=== PATIENT | male | born 1965 | race American Indian/Alaskan Native ===

== ENCOUNTER 2017-03-22 03:40 | Emergency (ER) | payer MEDICAID ==
[2017-03-22 04:29] LABS: Basophils % (Auto) 0.3 % (0.0-1.8); Eosinophils % (Auto) 0.9 % (0.0-4.3); Hematocrit 45.8 % (35.5-45.6); Hemoglobin 15.6 gm/dl (11.8-15.2); Mean Corpuscular HGB Conc 34 % (32-34); Mean Corpuscular Hemoglobin 31 pg (28-32); Mean Corpuscular Volume 92 fl (84-94); Platelet Count 196 K/mm3 (140-440); Red Blood Count 4.98 M/mm3 (3.65-5.03); White Blood Count 7.7 K/mm3 (4.5-11.0)
[2017-03-22 04:43] LABS: Partial Thromboplastin Time 28.7 Sec. (24.2-36.6)
[2017-03-22 04:51] LABS: Alanine Aminotransferase 28 units/L (7-56); Albumin 4.6 g/dL (3.9-5); Albumin/Globulin Ratio 1.4 %; Alkaline Phosphatase 79 units/L (35-129); Anion Gap 20 mmol/L; BUN/Creatinine Ratio 7.77; Blood Urea Nitrogen 7 mg/dL (9-20); Calcium 9.6 mg/dL (8.4-10.2); Carbon Dioxide 20 mmol/L (22-30); Chloride 102.2 mmol/L (98-107); Glucose 113 mg/dL (75-100); Lipase 44 units/L (13-60); Potassium 3.9 mmol/L (3.6-5.0); Sodium 138 mmol/L (137-145); Total Protein 7.9 g/dL (6.3-8.2)
[2017-03-22 05:45] LABS: INR 0.99 (0.87-1.13)
[2017-03-22] MEDS ORDERED: ZOFRAN ODT PO ONE (13:52)
[2017-03-22] MEDS ORDERED: PERCOCET 5/325 PO ONE (13:52)
[2017-03-22 14:09] LABS: Bacteria,Urine 1+ /HPF (Negative); Bilirubin,Urine NEG (Negative); Blood,Urine NEG (Negative); Ketones,Urine NEG (Negative); Leukocyte Esterase,Urine SM (Negative); Mucus,Urine 3+ /HPF; Nitrite,Urine NEG (Negative)
[2017-03-22 14:18] VITALS: BP 118/84
--- NOTE | 2017-03-22 15:05 | Emergency Department Report ---
ED Abdominal Pain HPI - General Chief Complaint: Abdominal Pain Stated Complaint: NOT FEELING WELL Time Seen by Provider: 03/22/17 13:36 Source: patient, EMS, RN notes reviewed Mode of arrival: Ambulatory Limitations: No Limitations - History of Present Illness Initial Comments: 51-year-old male presents to the emergency department complaining of abdominal pain, chest pain, and headache. Patient states abdominal pain has been present for the past 2 days. Pain started after he drank some alcohol. He began having nausea and vomiting shortly afterwards. He states he did see some dark blood initially, but this has resolved. Patient also describes sharp substernal chest pain that does not radiate. This pain has been present and intermittent for the past 2 weeks. He reports occasional shortness of breath, but denies dizziness or diaphoresis. Headache began this morning upon awakening. Patient describes throbbing pain to the left side of his head that radiates to his neck. Patient states he has had similar headaches since he was in high school. There are no other complaints. -: Gradual, week(s) (2) Location: epigastric Radiation: none Migration to: no migration Severity scale (0 -10): 10 Quality: sharp Consistency: constant Improves With: nothing Worsens With: nothing Context: other (alcohol ingestion) Associated Symptoms: nausea, vomiting - Related Data Home Medications Medication Instructions Recorded Confirmed Last Taken Brimonidine/Timolol 0.2-0.5% 1 drops OP Q12H 09/11/15 03/22/17 03/22/17 [Combigan 0.2-0.5%] Dorzolamide HCl/Timolol Maleat 10 ml OP DAILY 03/22/17 03/22/17 03/22/17 [Dorzolamide-Timolol Eye Drops] Ranitidine HCl [Zantac 150 MG TAB] 150 mg PO DAILY 03/22/17 03/22/17 03/22/17 Previous Rx's Medication Instructions Recorded Last Taken Type Promethazine [Phenergan TAB] 25 mg PO Q6HR PRN #20 tab 03/22/17 Unknown Rx oxyCODONE /ACETAMINOPHEN [Percocet 1 tab PO Q6HR PRN #14 tablet 03/22/17 Unknown Rx 5/325] Allergies Allergy/AdvReac Type Severity Reaction Status Date / Time No Known Allergies Allergy Verified 09/11/15 03:58 ED Review of Systems ROS: Stated complaint: NOT FEELING WELL Other details as noted in HPI Comment: All other systems reviewed and negative Respiratory: shortness of breath Cardiovascular: chest pain Gastrointestinal: abdominal pain, nausea, vomiting Neurological: headache ED Past Medical Hx - Past Medical History Previous Medical History?: Yes Hx Hypertension: Yes Hx GERD: Yes Additional medical history: PUD. Esophageal disease. Glaucoma - Surgical History Past Surgical History?: No - Family History Family history: no significant - Social History Smoking Status: Current Every Day Smoker Substance Use Type: Alcohol - Medications Home Medications: Home Medications Medication Instructions Recorded Confirmed Last Taken Type Brimonidine/Timolol 0.2-0.5% 1 drops OP Q12H 09/11/15 03/22/17 03/22/17 History [Combigan 0.2-0.5%] Dorzolamide HCl/Timolol Maleat 10 ml OP DAILY 03/22/17 03/22/17 03/22/17 History [Dorzolamide-Timolol Eye Drops] Promethazine [Phenergan TAB] 25 mg PO Q6HR PRN #20 tab 03/22/17 Unknown Rx Ranitidine HCl [Zantac 150 MG TAB] 150 mg PO DAILY 03/22/17 03/22/17 03/22/17 History oxyCODONE /ACETAMINOPHEN [Percocet 1 tab PO Q6HR PRN #14 tablet 03/22/17 Unknown Rx 5/325] ED Physical Exam - General Limitations: No Limitations General appearance: alert, in no apparent distress - Head Head exam: Present: atraumatic, normocephalic - Eye Eye exam: Present: normal appearance, PERRL, EOMI. Absent: conjunctival injection - ENT ENT exam: Present: normal exam, normal orophraynx, mucous membranes moist - Neck Neck exam: Present: normal inspection, full ROM. Absent: tenderness - Respiratory Respiratory exam: Present: normal lung sounds bilaterally. Absent: respiratory distress - Cardiovascular Cardiovascular Exam: Present: regular rate, normal rhythm, normal heart sounds - GI/Abdominal GI/Abdominal exam: Present: soft, normal bowel sounds. Absent: distended, tenderness - Extremities Exam Extremities exam: Present: normal inspection, full ROM. Absent: tenderness - Back Exam Back exam: Present: normal inspection, full ROM. Absent: tenderness - Neurological Exam Neurological exam: Present: alert, oriented X3. Absent: motor sensory deficit - Skin Skin exam: Present: warm, dry, intact ED Course Vital Signs 03/22/17 03/22/17 03/22/17 03:52 12:11 12:12 Temperature 98.8 F Pulse Rate 99 H 75 76 Respiratory 18 16 18 Rate Blood Pressure 128/87 Blood Pressure 134/99 [Right] O2 Sat by Pulse 98 97 96 Oximetry 03/22/17 03/22/17 03/22/17 12:13 12:15 12:22 Temperature Pulse Rate 85 75 Respiratory 16 18 18 Rate Blood Pressure 128/87 128/87 Blood Pressure [Right] O2 Sat by Pulse 96 97 97 Oximetry 03/22/17 03/22/17 03/22/17 12:31 12:33 12:35 Temperature Pulse Rate 71 75 78 Respiratory 14 17 16 Rate Blood Pressure 128/87 128/87 128/87 Blood Pressure [Right] O2 Sat by Pulse 98 98 98 Oximetry 03/22/17 03/22/17 03/22/17 12:37 12:39 12:41 Temperature Pulse Rate 74 79 80 Respiratory 17 28 H 21 Rate Blood Pressure 128/87 128/87 128/87 Blood Pressure [Right] O2 Sat by Pulse 97 98 98 Oximetry 03/22/17 03/22/17 03/22/17 12:43 12:45 12:47 Temperature Pulse Rate 80 75 78 Respiratory 22 16 17 Rate Blood Pressure 128/87 128/87 128/87 Blood Pressure [Right] O2 Sat by Pulse 98 97 97 Oximetry 03/22/17 03/22/17 03/22/17 12:49 12:51 12:53 Temperature Pulse Rate 70 70 72 Respiratory 16 14 17 Rate Blood Pressure 128/87 128/87 128/87 Blood Pressure [Right] O2 Sat by Pulse 99 99 96 Oximetry 03/22/17 03/22/17 03/22/17 12:55 12:57 12:59 Temperature Pulse Rate 82 78 81 Respiratory 20 19 23 Rate Blood Pressure 128/87 128/87 128/87 Blood Pressure [Right] O2 Sat by Pulse 98 98 99 Oximetry 03/22/17 03/22/17 03/22/17 13:00 13:01 13:03 Temperature Pulse Rate 76 84 79 Respiratory 26 H 28 H 23 Rate Blood Pressure 122/83 122/83 122/83 Blood Pressure [Right] O2 Sat by Pulse 96 97 99 Oximetry 03/22/17 03/22/17 03/22/17 13:05 13:07 13:09 Temperature Pulse Rate Respiratory Rate Blood Pressure 122/83 122/83 122/83 Blood Pressure [Right] O2 Sat by Pulse 97 97 97 Oximetry 03/22/17 03/22/17 03/22/17 13:11 13:13 13:15 Temperature Pulse Rate Respiratory Rate Blood Pressure 122/83 122/83 122/83 Blood Pressure [Right] O2 Sat by Pulse 97 97 99 Oximetry 03/22/17 03/22/17 03/22/17 13:17 13:19 13:21 Temperature Pulse Rate Respiratory Rate Blood Pressure 122/83 122/83 122/83 Blood Pressure [Right] O2 Sat by Pulse 96 96 95 Oximetry 03/22/17 03/22/17 03/22/17 13:23 13:25 13:27 Temperature Pulse Rate Respiratory Rate Blood Pressure 122/83 122/83 122/83 Blood Pressure [Right] O2 Sat by Pulse 96 95 96 Oximetry 03/22/17 03/22/17 03/22/17 13:29 13:31 13:33 Temperature Pulse Rate Respiratory Rate Blood Pressure 122/83 122/83 122/83 Blood Pressure [Right] O2 Sat by Pulse 98 98 98 Oximetry 03/22/17 03/22/17 03/22/17 13:39 13:41 13:43 Temperature Pulse Rate 79 75 Respiratory 15 19 Rate Blood Pressure 122/83 122/83 122/83 Blood Pressure [Right] O2 Sat by Pulse 99 98 98 Oximetry 03/22/17 03/22/17 03/22/17 13:45 13:47 13:49 Temperature Pulse Rate 74 73 75 Respiratory 24 14 19 Rate Blood Pressure 122/83 122/83 122/83 Blood Pressure [Right] O2 Sat by Pulse 97 96 97 Oximetry 03/22/17 03/22/17 03/22/17 13:51 13:53 13:55 Temperature Pulse Rate 76 76 75 Respiratory 20 19 23 Rate Blood Pressure 122/83 122/83 122/83 Blood Pressure [Right] O2 Sat by Pulse 97 97 97 Oximetry 03/22/17 03/22/17 03/22/17 13:57 13:59 14:00 Temperature Pulse Rate 72 73 71 Respiratory 18 19 18 Rate Blood Pressure 122/83 122/83 118/84 Blood Pressure [Right] O2 Sat by Pulse 97 97 Oximetry 03/22/17 03/22/17 03/22/17 14:01 14:03 14:05 Temperature Pulse Rate 77 73 87 Respiratory 21 20 29 H Rate Blood Pressure 118/84 118/84 118/84 Blood Pressure [Right] O2 Sat by Pulse 96 98 97 Oximetry 03/22/17 03/22/17 14:07 14:09 Temperature Pulse Rate 73 74 Respiratory 20 12 Rate Blood Pressure 118/84 118/84 Blood Pressure [Right] O2 Sat by Pulse 97 98 Oximetry ED Medical Decision Making - Lab Data Result diagrams: 03/22/17 04:06 03/22/17 04:06 - EKG Data -: EKG Interpreted by Me EKG shows normal: sinus rhythm, axis, intervals, QRS complexes, ST-T waves Rate: normal - EKG Data When compared to previous EKG there are: no significant change Interpretation: normal EKG, unchanged when compared t (09/11/2015) - Medical Decision Making Laboratory results reviewed and discussed with the patient. Patient reports his pain is markedly improved with medication. Patient will be discharged home at this time to follow up with his primary care physician. - Differential Diagnosis alcoholic gastritis, pancreatitis, migraine, atypical chest pain Critical care attestation.: If time is entered above; I have spent that time in minutes in the direct care of this critically ill patient, excluding procedure time. ED Disposition Clinical Impression: Acute gastritis without hemorrhage Qualifiers: Gastritis type: alcoholic Qualified Code(s): K29.20 - Alcoholic gastritis without bleeding Migraine Qualifiers: Migraine type: without aura Status migrainosus presence: without status migrainosus Intractability: not intractable Qualified Code(s): G43.009 - Migraine without aura, not intractable, without status migrainosus Disposition: DISCHARGED TO HOME OR SELFCARE Is pt being admited?: No Condition: Stable Instructions: Gastritis (ED), Migraine Headache (ED) Prescriptions: oxyCODONE /ACETAMINOPHEN [Percocet 5/325] 1 tab PO Q6HR PRN #14 tablet PRN Reason: Pain Promethazine [Phenergan TAB] 25 mg PO Q6HR PRN #20 tab PRN Reason: Nausea Referrals: [facility] [Provider Group] - 3-5 Days Time of Disposition: 15:10
== END 2017-03-22 15:24 | disposition home or self-care (01) ==
LOC: ED 03:40
DX: K29.20 Alcoholic gastritis without bleeding (principal); G43.009 Migraine without aura, not intractable, without status migrainosus; I10 Essential (primary) hypertension; K21.9 Gastro-esophageal reflux disease without esophagitis; K22.9 Disease of esophagus, unspecified; F17.200 Nicotine dependence, unspecified, uncomplicated
CPT/HCPCS: 36415; 80053; 81001; 83690; 84484; 85025; 85610; 85730; 93005; 93010; Q0162